=== PATIENT | male | born 1955 | race African-American/Black ===

== ENCOUNTER 2016-11-28 18:17 | Emergency (ER) | payer MEDICARE, MEDICAID ==
[~2016-11-28] VITALS: Ht 185.4 cm; Wt 79.4 kg
[2016-11-28 18:40] VITALS: BP 132/84
[2016-11-28] MEDS ORDERED: IBUPROFEN600 MG ORAL (18:53)
[2016-11-28] MEDS ORDERED: AUGMENTIN 500-1 EACH ORAL (18:53)
[2016-11-28] MEDS ORDERED: TRAMADOL HCL50 MG ORAL (18:53)
[2016-11-28 19:30] VITALS: BP 132/84
--- NOTE | 2016-11-28 21:09 | Emergency Room Report ---
History of Present Illness General Chief Complaint: Pain Source: Patient Present Illness HPI The patient is a 61-year-old male presenting with left-sided facial pain which began 2 days prior. Pain is described as a 6/10 dull ache limited to the left upper jaw and is worse with chewing. The patient states he has a history of dental infections and this feels similar. The patient took ciprofloxacin which was not prescribed to him and states pain has decreased. It does not radiate from the left side. He denies any other symptoms including fever, chills, rash , sore throat, ear pain, headache Allergies: Coded Allergies: No Known Allergies (Unverified , 11/28/16) Patient History Past Medical History: see triage record Pertinent Family History: none Reviewed Nursing Documentation: PMH: Agreed, PSxH: Agreed Nursing Documentation-PMH Hx Asthma: Yes Hx Gastrointestinal Problems: Yes - Chronic pancreatitis Review of Systems All Other Systems: negative except mentioned in HPI Physical Exam Vital Signs Date Time Temp Pulse Resp B/P Pulse Ox O2 Delivery O2 Flow Rate FiO2 11/28/16 18:29 99.0 100 16 132/84 98 Room Air Sp02 EP Interpretation: reviewed, normal General Appearance: no apparent distress, alert, GCS 15, non-toxic Head: normocephalic, atraumatic Eyes: bilateral eye PERRL, bilateral eye normal inspection ENT: hearing grossly normal, normal pharynx, no angioedema, normal voice, other - Poor dentition. L upper premolar TTP with surrounding erythema Neck: full range of motion, supple/symm/no masses Musculoskeletal: back normal, gait/station normal, normal range of motion, non- tender Neurologic: alert, oriented x3, responsive, motor strength/tone normal, sensory intact, speech normal Psychiatric: judgement/insight normal, memory normal, mood/affect normal, no suicidal/homicidal ideation Skin: normal color, no rash, warm/dry, well hydrated Lymphatic: no adenopathy Medical Decision Making PA Attestation Dr. Love is my supervising physician. Patient management was discussed with my supervising physician Diagnostic Impression: Primary Impression: Dental infection ER Course The patient is a 61-year-old male presenting with left-sided facial pain Diagnoses considered but not limited to: Dental lelia, dental abscess, toothache , gingivitis, cellulitis PE: vitals WNL. NAD There is poor dentition throughout. Visible dental caries and fractures. Left upper premolar is tender to palpation. There is surrounding erythema and edema. No fluctuance No adenopathy. The patient will be discharged home with antibiotics. ER precautions are given and the patient needs to follow up with dentist as soon as possible Last Vital Signs Date Time Temp Pulse Resp B/P Pulse Ox O2 Delivery O2 Flow Rate FiO2 11/28/16 19:30 99.0 16 132/84 98 Room Air 11/28/16 18:29 100 Status: improved Disposition: HOME, SELF-CARE Condition: Improved Scripts Amoxicillin/Potassium Clav 500-125 Tablet* (AUGMENTIN 500-125 TABLET*) 1 Each Tablet 1 TAB ORAL THREE TIMES A DAY, #21 TAB Prov: XIN MOSS P.A. 11/28/16 Tramadol Hcl* (ULTRAM*) 50 Mg Tablet 50 MG ORAL Q6H Y for For Pain, #10 TAB 0 Refills Prov: TERZIANKYRIEY P.A. 11/28/16 Ibuprofen* (MOTRIN*) 600 Mg Tablet 600 MG ORAL Q8H Y for For Pain, #30 TAB 0 Refills Prov: TERZIAN,XIN P.A. 11/28/16 Referrals: NON PHYSICIAN (PCP) Patient Instructions: Dental Pain Additional Instructions: I discussed my findings with the patient. All questions and concerns have been answered. Treatment and medication compliance have been addressed. I advised the patient that they need to follow up with PMD in 3-5 days. Return to ED if symptoms worsen, new symptoms arise, or if needed for any reason. Patient verbalized understanding of discharge instructions. Patient is to followup with dentist as soon as possible for further evaluation XIN MOSS Nov 28, 2016 21:09
== END 2016-11-28 19:30 | disposition home or self-care (01) ==
LOC: EMR 19:02
DX: K04.7 Periapical abscess without sinus (principal); K86.1 Other chronic pancreatitis
CPT/HCPCS: 99284

== ENCOUNTER 2018-10-20 12:55 | Emergency (ER) | payer MEDICARE, MEDICAID ==
[~2018-10-20] VITALS: Ht 185.4 cm; Wt 79.4 kg
[~2018-10-20 12:55] MED LIST: AUGMENTIN 500-1 EACH ORAL; IBUPROFEN600 MG ORAL; TRAMADOL HCL50 MG ORAL
--- NOTE | 2018-10-20 13:14 | NUR ---
ED Nurse Note: Pt from home came in due to productive coughing with yellow/green phlegm, runny nose, congestion and fever at home x 5days. Afebrile upon triage. Pt is AAO x4, ambulatory with non labored breathing. Mild wheezing noted upon auscultation.
--- NOTE | 2018-10-20 13:15 | Emergency Room Report ---
History of Present Illness General Chief Complaint: Upper Respiratory Illness Source: Patient Present Illness HPI Patient present with complaints of nasal congestion and cough Reports that on Tuesday he had an appointment at [facility] pain clinic by the time he had gone home he started to have a runny nose Body ache denies any neck pain or photophobia denies any chest pain Denies any history of smoking denies any vomiting or diarrhea Allergies: Coded Allergies: No Known Allergies (Unverified , 11/28/16) Patient History Past Medical History: see triage record Pertinent Family History: none Reviewed Nursing Documentation: PMH: Agreed; PSxH: Agreed Nursing Documentation-PMH Past Medical History: No History, Except For Hx Cardiac Problems: No - five cerivical herniated disds Hx Hypertension: No Hx Pacemaker: No Hx Asthma: Yes Hx COPD: No Hx Diabetes: No Hx Cancer: No Hx Gastrointestinal Problems: Yes - Chronic pancreatitis Hx Dialysis: No History Of Psychiatric Problem: Yes - anxiety Hx Neurological Problems: No Hx Cerebrovascular Accident: No Hx Seizures: No Review of Systems All Other Systems: negative except mentioned in HPI Physical Exam Vital Signs Date Time Temp Pulse Resp B/P (MAP) Pulse Ox O2 Delivery O2 Flow Rate FiO2 10/20/18 13:03 99.9 94 16 141/87 99 Room Air Sp02 EP Interpretation: reviewed, normal General Appearance: well appearing, no apparent distress Head: normocephalic, atraumatic Eyes: bilateral eye PERRL, bilateral eye EOMI ENT: hearing grossly normal, normal pharynx, TMs + canals normal, uvula midline Neck: full range of motion, supple, no meningismus, no bony tend Respiratory: lungs clear, normal breath sounds, no rhonchi, no respiratory distress, no retraction, no accessory muscle use Cardiovascular #1: normal peripheral pulses, regular rate, rhythm, no edema, no gallop, no JVD, no murmur Gastrointestinal: normal bowel sounds, non tender, soft, no mass, no organomegaly, non-distended, no guarding, no hernia, no pulsatile mass, no rebound Genitourinary: no CVA tenderness Musculoskeletal: normal inspection Neurologic: oriented x3, responsive, lead generation representative III-XII nml as tested, motor strength/ tone normal, sensory intact Psychiatric: mood/affect normal Skin: normal color, no rash, warm/dry, palpation normal Lymphatic: normal inspection, no adenopathy Medical Decision Making Diagnostic Impression: Primary Impression: Upper respiratory infection ER Course Given the patient's history exam and presentation X-ray imaging was obtained No obvious acute pathology is seen Patient continues to remain hemodynamically stable and is appropriate for close outpatient follow-up Chest X-Ray Diagnostic Results Chest X-Ray Diagnostic Results : Chest X-Ray Ordered: Yes # of Views/Limited/Complete: 1 View Indication: Shortness of Breath EP Interpretation: Yes Interpretation: no consolidation, no effusion, no pneumothorax Impression: No acute disease Electronically Signed by: Michaelle Mike DO Last Vital Signs Date Time Temp Pulse Resp B/P (MAP) Pulse Ox O2 Delivery O2 Flow Rate FiO2 10/20/18 13:12 94 16 Room Air 10/20/18 13:03 99.9 141/87 99 Status: improved Disposition: HOME, SELF-CARE Condition: Improved Scripts Guaifenesin (MUCINEX) 100 Mg Gran.pack 100 MG PO DAILY for 7 Days, MG Prov: Michaelle Mike DO 10/20/18 Additional Instructions: Patient is provided with the discharge instructions notified to follow up with primary doctor in the next 2-3 days otherwise return to the er with any worsening symptoms. Please note that this report is being documented using [employer] technology. This can lead to erroneous entry secondary to incorrect interpretation by the dictating instrument. Michaelle Mike DO Oct 20, 2018 13:15
[2018-10-20] MEDS ORDERED: MUCINEX100 MG PO (13:56)
[2018-10-20 14:11] VITALS: BP 122/76
--- NOTE | 2018-10-20 14:11 | NUR ---
ED Nurse Note: Pt cleared by ER MD for discharge. DC instructions/prescription was given and explaiend to pt and verbalized understanding of teachings. All medical devices such as ID band removed. Pt is AAO x4, ambulatory and left with all perosnal belongings.
--- NOTE | 2018-10-20 15:47 | Diagnostic Imaging Report ---
Indication: Shortness of breath Technique: One view of the chest Comparison: none Findings: Lungs and pleural spaces are clear. Heart size is normal Impression: No acute process
== END 2018-10-20 14:11 | disposition home or self-care (01) ==
LOC: EMR 13:30
DX: J06.9 Acute upper respiratory infection, unspecified (principal); J45.909 Unspecified asthma, uncomplicated; F41.9 Anxiety disorder, unspecified
CPT/HCPCS: 71045; 99283

== ENCOUNTER 2019-09-18 11:47 | Emergency (ER) | payer MEDICARE, MEDICAID ==
[~2019-09-18] VITALS: Ht 185.4 cm; Wt 79.4 kg
[~2019-09-18 11:47] MED LIST changes: +MUCINEX100 MG PO
[2019-09-18 12:01] VITALS: BP 162/80
--- NOTE | 2019-09-18 12:07 | NUR ---
ED Nurse Note: PT. AAOX4. AMBULATORY. WALKED IN TO ER FROM HOME. PT STATED HE IS HERE DUE TO POSSIBLE STD. WANT TO BE CHECKED OUT.
[2019-09-18] MEDS ORDERED: Azithromycin 250mg tab ORAL ONE (12:15)
[2019-09-18] MEDS ORDERED: Lidocaine 1% MPF 10mg/ml 5ml INJ ONE (12:15)
--- NOTE | 2019-09-18 12:15 | Emergency Room Report ---
History of Present Illness General Chief Complaint: Male Urogenital Problems Source: Patient Present Illness HPI 64-year-old male presents with dysuria, discharge no known aggravating relieving factors severity is mild, constant patient reports that his partner was just treated for STDs, patient presents for evaluation no fevers no chills no chest pain or shortness of breath Allergies: Coded Allergies: No Known Allergies (Unverified , 11/28/16) Patient History Past Medical History: see triage record Reviewed Nursing Documentation: PMH: Agreed; PSxH: Agreed Nursing Documentation-PMH Past Medical History: No Stated History Hx Cardiac Problems: No - five cerivical herniated disds Hx Hypertension: No Hx Pacemaker: No Hx Asthma: Yes Hx COPD: No Hx Diabetes: No Hx Cancer: No Hx Gastrointestinal Problems: Yes - Chronic pancreatitis Hx Dialysis: No Hx Neurological Problems: No Hx Cerebrovascular Accident: No Hx Seizures: No Review of Systems All Other Systems: negative except mentioned in HPI Physical Exam Vital Signs Date Time Temp Pulse Resp B/P (MAP) Pulse Ox O2 Delivery O2 Flow Rate FiO2 09/18/19 12:01 98.4 76 19 162/80 99 Room Air General Appearance: well appearing, no apparent distress Head: normocephalic, atraumatic Eyes: bilateral eye PERRL, bilateral eye EOMI ENT: hearing grossly normal, normal voice Neck: full range of motion, supple Respiratory: no respiratory distress, speaking full sentences Neurologic: alert, normal gait Psychiatric: mood/affect normal Skin: no rash Medical Decision Making Diagnostic Impression: Primary Impression: Exposure to STD ER Course 64-year-old male presents with possible STD exposure, will treat Patient given Rocephin, azithromycin Counseled patient to follow-up in clinic for full work-up disposition home with return precautions Last Vital Signs Date Time Temp Pulse Resp B/P (MAP) Pulse Ox O2 Delivery O2 Flow Rate FiO2 09/18/19 12:01 98.4 76 19 162/80 (107) 99 Room Air Disposition: HOME, SELF-CARE Condition: Stable Referrals: [facility] Patient Instructions: Sexually Transmitted Disease, [id number] Additional Instructions: The patient was provided with discharge instructions, notified to follow-up with a primary care doctor and or specialist in the next 24-48 hours, and to return to the ED if they have worsening of their symptoms. Please note that this report is being documented using [employer] technology. This can lead to erroneous entry secondary to incorrect interpretation by the dictating instrument. Amor Min MD Sep 18, 2019 12:15
[2019-09-18 12:20] VITALS: BP 158/75
--- NOTE | 2019-09-18 12:20 | NUR ---
ER DISCHARGE NOTE: Patient is cleared to be discharged per ERMD, pt is aox4, on room air, with stable vital signs. pt was given dc and prescription instructions, pt was able to verbalize understanding, pt id band removed. pt is able to ambulate with steady gait. pt took all belongings.
== END 2019-09-18 13:00 | disposition home or self-care (01) ==
LOC: EMR 12:28
DX: R30.0 Dysuria (principal); Z20.2 Contact with and (suspected) exposure to infections with a predominantly sexual mode of transmission
CPT/HCPCS: 96372; 96374; 99284; J0696